=== PATIENT | male | born 1965 | race Caucasian/White ===

== ENCOUNTER 2020-06-02 15:12 | Outpatient (CLI) | payer OTHER, SELFPAY | END 2020-06-02 15:13 | disposition home or self-care (01) | LOC: ANHCOVIDVC 15:12 | PROVIDERS: PCP Family Medicine | DX: Z23 Encounter for immunization (principal) | CPT/HCPCS: 0001A; 91300 ==

== ENCOUNTER 2020-06-23 15:13 | Outpatient (CLI) | payer OTHER, SELFPAY | END 2020-06-23 15:14 | disposition home or self-care (01) | LOC: ANHCOVIDVC 15:14 | PROVIDERS: PCP Family Medicine | DX: Z23 Encounter for immunization (principal) | CPT/HCPCS: 0002A; 91300 ==

== ENCOUNTER 2020-07-21 08:20 | Outpatient (CLI) | payer OTHER, SELFPAY ==
--- NOTE | 2020-08-04 16:41 | WPDHOMESLEEP ---
Sleep Study - Home Unattended Date of Study: 07/21/20 Ordering Provider: Rick uMnoz MD Interpreting Provider: Jerrica Damon MD Home Sleep Study Type: Apnea Link Air Height: 1.83 m Weight: 108.862 kg Body Mass Index: 32.5 Neck Circumference (inches): 17 Regan: 3 Reason for Sleep Study Sleeping longer than in the past, nocturia+ Sleep History Bryon Reyes is a 55 year old man with prostate issues, and he wakes to urinate 2-3 times per night. This does not bother him, however he has been urged by others to get his sleep tested. He does not have difficulty falling asleep or waking in the morning. HE denies most all complaints about his sleep. He does not wake at night with shortness of breath, waking with heartburn, belching or coughing, dose not snores and others sharif not complain that he snores. He has no problem sleeping with a cold. He denies gasping for breath at night. He does not sweat excessively at night, and does not notice his heart pounding excessive;y at night. He does not fall asleep in the day, does not fall asleep involuntarily, and does not fall asleep while driving. He does not have loss of muscle tome with strong emotion. He does not have daytime difficulties due to excessive sleepiness. He does not feel paralyzed on waking or falling asleep. He denies having dream-like scenes upon waking or falling asleep. He rarely has nightmares. He rarely remembers his dreams. He denies racing thoughts, feelings of sadness or depression, anxiety, or muscular tension. He rarely notices parts of his body jerking. He does not kick at night. He does not have crawling or achey feelings in his legs. He has some hip pain at night. He does not have morning jaw pain, and he does not grind his teeth during his sleep. Fannie frequently is bothered by pain in kathy day. He rarely is awakened by pain at night. He frequently feels stiff in the morning with sore achy muscles. He rarely wakes with pain in this neck and spine. Normal bedtime is 8:30 pm, falling asleep quickly, waking 2-3 times at night to urinate, and then he returns to sleep. He wakes at 3:00-4:00 a.m.. On weekends, he goes to bed at 9:00-10:00 p.m., and wakes at 5:00 a.m. He rarely takes a nap. A short nap may be refreshing. He feels good when he wakes in the morning. Habits: Former smoker. Caffeine: 8-16 oz a day. No alcohol. No recreational drugs. [facility] Past Medical History Medical History (Updated 08/06/20 @ 16:51 by Jerrica Damon MD) Arthritis Cerebellar ataxia Urinary hesitancy Surgical History Surgical History History of hip replacement (~2012) History of mastoidectomy (~1975) right Family History Family History Sibling Depression Family history of bipolar disorder Patient's sister is in good health Patient's brother is in good health Grandparent Family history of bipolar disorder Family history of cardiovascular disease Father Family history of alcoholism Hypertension Mother Family history of alcoholism Patient's mother is Other Diabetes mellitus Family history of lung cancer Social History Social History Smoking status: Former smoker Smoking end date: 03/31/16 Alcohol intake: never Medications Home Medications Medication Instructions Recorded Confirmed Type tamsulosin 0.4 mg capsule 0.4 mg PO DAILY #30 cap 08/16/19 07/27/20 Rx ibuprofen 800 mg tablet 800 mg PO Q6H PRN #100 tablet 12/02/19 07/27/20 Rx Sleep Procedure This test was performed using 4 channel monitoring including respiratory effort channel, snoring channel, heart rate channel, and oxygen saturation channel. This study was scored using CMS guidelines. Sleep Architecture Not applicable for home sleep test. Respiratory Analysis The recording time is 6 ho
[2020-08-06 16:44] VITALS: BMI 32.5
== END 2020-07-21 08:21 | disposition home or self-care (01) ==
LOC: ANHCSM 08:20
PROVIDERS: PCP Family Medicine; Visit Provider Family Medicine
DX: G47.33 Obstructive sleep apnea (adult) (pediatric) (principal); Z68.35 Body mass index [BMI] 35.0-35.9, adult
CPT/HCPCS: 95806

== ENCOUNTER 2020-09-26 11:42 | Outpatient (CLI) | payer OTHER, SELFPAY ==
--- NOTE | 2020-09-26 12:57 | ECG_ITS ---
Measurements Intervals [place] Rate: 54 P: 11 ND: 160 QRS: 47 QRSD: 101 T: 25 QT: 413 QTc: 394 Interpretive Statements SINUS BRADYCARDIA INCOMPLETE RIGHT BUNDLE BRANCH BLOCK BASELINE ARTIFACT- I, V2 BORDERLINE ECG Electronically Signed On 09-26-2020 13:15:20 CDT by Abdulaziz Dotson D.O.
[2020-09-26 13:47] LABS: Basophils Absolute Auto 0.1 K/mm3 (0.0-0.1); Basophils Percent Auto 0.7 % (0.2-1.2); Eosinophils Absolute Auto 0.4 K/mm3 (0-0.3); Eosinophils Percent Auto 5.1 % (0-4.4); Hematocrit 51.2 % (42.0-52.0); Hemoglobin 17.3 g/dL (14.0-18.0); Immature Granulocyte Absolute 0.01 K/mm3 (0.00-0.031); Immature Granulocyte Percent A 0.1 % (0-0.5); Lymphocytes Percent Auto 33.8 % (18.3-44.2); Mean Corpuscular HGB Conc 33.8 g/dl (32-36); Mean Corpuscular Hemoglobin 32.5 pg (26-34); Mean Corpuscular Volume 96.1 fl (80-100); Mean Platelet Volume 9.6 fl (7.4-10.4); Monocytes Absolute Auto 0.7 K/mm3 (0.1-0.6); Monocytes Percent Auto 9.6 % (2.6-8.5); Neutrophils Absolute Auto 3.6 K/mm3 (1.3-6.7); Neutrophils Percent Auto 50.7 % (45.5-73.1); Platelet Count Result 208 k/mm3 (150-375); Red Blood Count 5.33 M/mm3 (4.6-6.20); Red Cell Distribution Width 12.5 % (11.5-14.5); White Blood Count 7.1 K/mm3 (4.5-10.0)
[2020-09-26 13:50] LABS: Add Urine Microscopic? YES; Appearance Urine Clear (Clear); Bilirubin Urine Negative (Negative); Blood Urine 1+ (Negative); Color Urine Yellow (Yellow); Glucose Urine UA Negative (Negative); Ketones Urine Negative (Negative); Leukocyte Esterase Ur Negative LEU/UL (Negative); Nitrate Urine Negative (Negative); Protein Urine Negative (Negative); RBC Urine 0-2 /hpf (0-2); Specific Grav Ur 1.018 (1.001-1.035); Urobilinogen Urine Negative mg/dL (<2.0); WBC Urine 0-3 /hpf
[2020-09-26 13:59] LABS: Prothrombin Time 13.4 Seconds (11.1-14.7)
[2020-09-26 14:00] LABS: Partial Thromboplastin Time 26.4 SECONDS (22.3-36.8)
[2020-09-26 14:01] LABS: Albumin Level 4.4 g/dL (3.5-5.1); Anion Gap 6 mmol/L (8-16); Blood Urea Nitrogen 14 mg/dL (9-20); Calcium 9.4 mg/dL (8.4-10.2); Carbon Dioxide 27 mmol/L (22-30); Chloride 107 mmol/L (98-107); Estimated Glomerular Filt Rate > 60; Glucose 93 mg/dL (75-110); Potassium 4.4 mmol/L (3.4-5.0); Sodium 140 mmol/L (137-145)
[2020-09-26 14:04] LABS: Hemoglobin A1C 5.3 % (<5.7)
[2020-09-26 14:06] LABS: Urine Cotinine POSITIVE
== END 2020-09-26 11:43 | disposition home or self-care (01) ==
LOC: ANHSURGERY 11:48
PROVIDERS: PCP Family Medicine; Visit Provider Orthopaedic Surgery
DX: M16.11 Unilateral primary osteoarthritis, right hip (principal); Z01.818 Encounter for other preprocedural examination; I45.10 Unspecified right bundle-branch block
CPT/HCPCS: 80048; 80307; 81001; 82040; 83036; 85025; 85610; 85730; 87081; 93005

== ENCOUNTER 2020-11-14 09:10 | Outpatient (CLI) | payer OTHER, SELFPAY ==
[2020-11-14 09:48] LABS: Urine Cotinine NEGATIVE
== END 2020-11-14 09:11 | disposition home or self-care (01) ==
PROVIDERS: PCP Family Medicine; Visit Provider Orthopaedic Surgery
DX: M16.11 Unilateral primary osteoarthritis, right hip (principal); Z01.818 Encounter for other preprocedural examination
CPT/HCPCS: 80307; 86850; 86900; 86901

== ENCOUNTER 2020-11-22 00:17 | Day surgery (SDC) | payer OTHER, SELFPAY ==
[2020-09-26 12:09] VITALS: BMI 33.3
[2020-11-09 16:00] VITALS: BMI 33.3
--- NOTE | 2020-11-21 14:33 | WPDANESEPPF ---
Anes - Initial Pre Proc Eval Procedure: Operation Date: 11/22/20 07:30 Proposed Procedures p Right Total Hip Arthroplasty - Mayco Carter MD Date/Time: 11/21/20 14:33 Surgeon: Mayco Carter MD Pre Op Diagnosis: Right Hip DJD Patient Data Age: 55 Gender: M Height: 1.83 m Weight: 111.4 kg Allergies Allergy/AdvReac Type Severity Reaction Status Date / Time No Known Allergies Allergy Verified 11/22/20 06:11 Home Medications Medication Instructions Recorded Confirmed Type ibuprofen 800 mg tablet 800 mg PO Q6H PRN #100 tablet 12/02/19 11/22/20 Rx tamsulosin 0.4 mg PO DAILY 09/26/20 11/22/20 History tramadol 50 mg tablet 50 mg PO Q12H PRN tablet 10/04/20 11/22/20 History cyclobenzaprine 10 mg tablet 10 mg PO TID PRN #60 tablet 11/03/20 11/22/20 Rx diazepam 5 mg PO BID PRN 11/09/20 11/22/20 History Patient hx anesthesia problems: none Family hx anesthesia problems: none PMFSH Past Medical History Medical History Arthritis Cerebellar ataxia Urinary hesitancy Surgical History Surgical History History of hip replacement (~2012) History of mastoidectomy (~1975) right Family History Family History Sibling Depression Family history of bipolar disorder Patient's sister is in good health Patient's brother is in good health Grandparent Family history of bipolar disorder Family history of cardiovascular disease Father Family history of alcoholism Hypertension Mother Family history of alcoholism Patient's mother is Other Diabetes mellitus Family history of lung cancer Social History Social History (Updated 11/06/20 @ 13:25 by Viv Sanchez MA) Smoking packs per day: 1 Smoking cigarettes per day: 20.0 Years smoked: 35 Smoking pack-years: 35.00 Smoking end date: 03/31/16 Additional smoking assessment comments: STOPPED CIGARETTES 2011, CURRENTLY VAPES 10 TIMES/DAY(WITH NICOTINE) Alcohol intake: former Alcohol use details: DRANK HEAVILY PRIOR TO 2011 Living arrangements: with family Additional living arrangements comments: Spiritual care concerns: No Anes - Eval Final PreProcedure Day of Procedure 11/21/20 14:33 Patient weight: obese Heart: regular rate and rhythm Lungs: clear to auscultation Airway: Mallampati scale class III Neurological: alert and oriented Last oral intake: >/= 8 hours ASA classification: III Emergent: no Anesthetic plan: proceed Anesthesia type and monitoring: general ETT and standard monitoring Informed Consent: The patient's anesthetic plan and its attendant risks and benefits were discussed with the patient/family/POA. Questions were solicited and answers provided to the satisfaction of the patient/family/POA.
[2020-11-22] VITALS (11 sets, daily range): BP systolic 123–155; BP diastolic 71–84; PULSE 64–78; RESP 10–20; TEMP 36.1–36.3; O2SAT 91–98; BMI 33.8
--- NOTE | ~2020-11-22 | XR_ITS ---
EXAMINATION: XR hip RT 1V DATE: 11/22/2020 11:14 INDICATION: Right hip arthroplasty. Postop. TECHNIQUE: A single view of right hip was obtained. COMPARISON: Right hip radiographs 07/27/2020 FINDINGS: There is a total right hip arthroplasty in near-anatomic alignment. No fracture. There is g as in the soft tissues, consistent with recent surgery. IMPRESSION: 1. Total right hip arthroplasty in near-anatomic alignment. Reviewed, dictated and finalized at location A.
[2020-11-22] MEDS: ACETAMINOPHEN 500 MG TABLET 1000 MG PO (06:17)
[2020-11-22] MEDS: LACTATED RINGERS 1,000 ML 30 ML IV CONT ×3 (06:29→12:06)
[2020-11-22] MEDS: TRANEXAMIC ACID 1,000MG/ISO100 1,000 MG/100 ML BAG 200 MG IVPB (06:30)
--- NOTE | 2020-11-22 07:19 | WPDHPUPDATE1 ---
History and Physical Update Update Date/Time: 11/22/20 07:19 History and Physical has been reviewed, including an updated exam of the patient. There are NO changes in the patient's condition. Risks, benefits, and alternatives have been discussed and questions answered. Patient agrees to proceed with procedure.
[2020-11-22] MEDS: ceFAZolin 2 GM/D5W 50 ML 2 GM/50 ML BAG IVPB (07:29)
--- NOTE | 2020-11-22 07:40 | SUR.PREOP ---
0715; DR GRUBBS NOTIFIED OF VERY SMALL SCRATCH TO BACK OF LOWER RT CALF.
[2020-11-22] MEDS: BUPIVACAINE HCL 0.5% PF 30 ML VIAL 10 ML INFILTRATE (09:53)
[2020-11-22] MEDS: KETOROLAC 30 MG/ML VIAL (*BKC) IV PUSH (10:29)
--- NOTE | 2020-11-22 11:00 | P.OP_ITS ---
Procedure Note - Detailed Date of Procedure 11/22/20 Pre-op Diagnosis Right Hip DJD Post-op Diagnosis same Procedure Performed R JC Surgeon Mayco Carter MD Anesthesia general Description of Procedure THE PATIENT WAS TAKEN TO THE OPERATING ROOM IN STABLE CONDITION AND WAS PLACED IN THE LATERAL DECUBITUS AND THE RIGHT LOWER EXTREMITY WAS PREPPED AND DRAPED IN THE STERILE FASHION. INCISION WAS MADE IN THE POSTERIOR LATERAL SIDE OF THE HIP, DOWN TO THE FASCIA LAYER. THE FASCIA WAS INCISED. THE HIP WAS EXPOSED. THE SHORT EXTERNAL ROTATORS WERE EXPOSED. THE SCIATIC NERVE WAS IDENTIFIED. INCISION WAS MADE THROUGH THE SORT EXTERNAL ROTATORS AND THE CAPSULE OF THE HIP JOINT. THE HIP WAS DISLOCATED. AN OSTEOTOMY WAS MADE TO THE FEMORAL NECK ABOUT 1 CM PROXIMAL TO THE LESSER TROCHANTER. THE ACETABULUM WAS EXPOSED. THERE WAS SEVERE DJD SEEN. BEGINNING WITH A 44 REAMER THE ACETABULUM WAS REAMED TO 53 MM. A 53 MM TRIAL WAS PLACED IN 35 DEG OF ABDUCTION AND ANTEVERSION WAS IN ALIGNMENT WITH THE TRANS ACETABULAR LIGAMENT. THE FIT WAS EXCELLENT. THE TRIAL WAS REMOVED. A 56 MM BIOMET G7 COMPONENT WAS THEN TAPPED IN TO PLACE IN 35 DEG OF ABDUCTION AND ANTEVERSION IN ALIGNMENT WITH THE TRANSVERSE ACETABULAR LIGAMENT. THE FIT WAS EXCELLENT. THE ACETABULAR LINER WAS PLACED AND CHECKED FOR STABILITY. NEXT THE FEMUR WAS PREPARED WITH INITIAL CANAL FINDER THEN SEQUENTIAL BROACHING WITH A TAPERLOC HIP SYSTEM, UNTIL A 13 BROACH FIT WELL IN 15 OF ANTEVERSION. A +6 HIGH OFFSET NECK WITH 36 MM HEAD TRIAL WAS PLACED. THE ANDRIA TEST WAS EXCELLENT AND THE STABILITY IN FLEXION AND ROTATION WAS EXCELLENT. LEG LENGTHS WERE GROSSLY EQUAL. TRIALS WERE REMOVED. A BIOMET TAPERLOC 13 STEM WAS PLACED WITH A HIGH OFFSET NECK THE FIT WAS EXCELLENT IN 15 DEG OF ANTEVERSION. A +6 CERAMIC 36 MM FEMORAL HEAD WAS PLACED. THE HIP WAS TRIALED AND THE STABILITY WAS EXCELLENT WERE THE LEG LENGTHS AND THE SCHUK TEST. THE WOUND WAS IRRIGATED WITH STERILE BETADINE AND WATER FOR 3 MIN. THEN WASHED AGAIN. THE CAPSULE AND THE EXTERNAL ROTATORS WERE APPROXIMATED WITH NUMBER 1 VICRYL. THE FASCIA WITH No 2 QUIL AND THE SUB CUTANEOUS LAYER WITH 2-0 ABSORBABLE SUTURE WITH A RUNNING 3-0 SUBCUTICULAR LAYER WELL. DERMABOND WAS PLACED AND STERILE DRESSING WAS APPLIED. PATIENT WAS PLACED BACK ON TO THE S UPINE POSITION AND WAS EXTUBATED Estimated Blood Loss 1,000 Complications No immediate complications Condition stable Disposition PACU
[2020-11-22] MEDS: HYDROmorphone HCL INJ (*CRX) 1 MG/ML SYR 0.25 MG IV PUSH ×4 (11:18→12:00)
[2020-11-22] MEDS: oxyCODONE HCL (*CRX) 5 MG TAB IR PO (13:21)
--- NOTE | 2020-11-22 13:31 | SUR.PHASEII ---
Patient is working with physical therapy at this time.
--- NOTE | 2020-11-22 18:34 | SUR.PHASEII ---
Lapse in vitals in Outpatient d/t patient working with therapy, eating, and waiting for discharge paperwork. Patient's vitals were stable in outpatient when hooked up to the monitor.
== END 2020-11-22 16:14 | disposition home or self-care (01) ==
PROVIDERS: PCP Family Medicine; Visit Provider Orthopaedic Surgery
PROC: (CPT 27130; principal; 2020-11-22 07:30)
DX: M16.11 Unilateral primary osteoarthritis, right hip (principal); F17.210 Nicotine dependence, cigarettes, uncomplicated; Z79.899 Other long term (current) drug therapy
CPT/HCPCS: 27130; 73501; 80307; 86850; 86900; 86901; 97110; 97162; A9270; C1713; C1776; J0171; J0690; J1100; J1170; J1885; J2250; J2270; J2405; J2704; J2710; J2795; J3010; J7120

== ENCOUNTER 2021-01-11 08:15 | Outpatient (RCR) | payer OTHER, SELFPAY ==
--- NOTE | 2020-12-21 09:57 | PTOPEVAL ---
PHYSICAL THERAPY EVALUATION AND PLAN OF CARE Thank you for referring Bryon Reyes to [facility].? The patient is scheduled to be seen for therapy? 1x/week for 4 weeks. Please review, sign, date and return this plan of care CADE. I agree with and certify that the following plan of care is medically necessary. Referring Physician Date Attending Provider: Mayco Carter MD Evaluation Outpatient Past Medical History Past Medical History No Past Medical/Surgical History Patient/Family Denies Significant Past Medical/ Surgical History Source of Past Medical History Patient Evaluation Information Problem Diagnosis R JC Onset 11/22/2020 Additional Evaluation Detail Pt discontinued use of cane following therapy due to excellent progress. 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 He Query Text:As Reported By Patient/ drives approximately 300 miles Family per day and must lift up to 50 pounds. He is not currently working per MD. Prior Level of Function Activity Level (Last 3 Months) Hand Dominance Right Activity of Daily Living Ability Independent Indoor/Home Mobility Independent Community Mobility Independent Stairs Ability Independent Functional Cognition (Planning, Shopping Independent , Taking Medications) Cooking Yes Cleaning Yes Laundry Yes Shopping Yes Home Setting Home Type House,Multiple Levels Environmental Barriers Railing, Ascend Left,Stairs, Greater than 4 Living Situation With Spouse Support Available Local Family Support Mobility Assistive Devices (Used Last 3 Cane Months) Bathing Equipment None Pain Assessment Timing of Pain Assessment Timing of Pain Assessment Assessment Self Report Self Report Pain Level 0 Pain Score Pain Score 0: Self Report Lower Extremity Muscle Strength Testing General Lower Extremity Strength Gross Lower Extremity Strength -5XSTS=14.78s Hip Strength Right Hip Flexion Strength 4- Good - Hip Abduction Strength 4- Good - Hip Adduction Strength 5 Normal Hip Medial Rotation Strength 5 Normal Hip Lateral Rotation Strength 3+ Fair + Left Hip Flexion Strength 5 Normal Hip Extension Strength 4 Good Hip Abduction Strength 4 Good Hip Adduction Strength 5 Normal Hip Medial Rotation Strength 5 Normal Hip Lateral Rotation Strength
--- NOTE | 2020-12-21 09:58 | PCPTNOTE ---
On 12/21/20, the student, ESTELLA Adame, provided care and completed [facility] documentation on this patient. I have reviewed the student's documentation and agree with the findings.
--- NOTE | 2021-01-17 17:52 | PCPTNOTE ---
Patient called & cancelled scheduled appointment tomorrow due to exposure to covid.
--- NOTE | 2021-01-31 17:09 | PCPTNOTE ---
Patient called & cancelled scheduled appointment this date due to going to a .
--- NOTE | 2021-02-08 10:36 | PCPTNOTE ---
PHYSICAL THERAPY DISCHARGE NOTE Attending Provider: Mayco Carter MD Patient:Bryon Reyes Date of :1965 Patient has not returned for any further treatments since 01/11/2021, therefore will be discharged at this time. Patient?s initial visit was on 12/21/2020. He returned back to work. Thank you for referring this patient to [facility]. Please review, sign, date and return this discharge summary CADE. I have been updated about the patient's current status and I agree with discharge from the above service at this time. Referring Physician Date
== END 2021-02-08 16:44 | disposition home or self-care (01) ==
LOC: ANHPT 08:15
PROVIDERS: PCP Family Medicine; Visit Provider Orthopaedic Surgery
DX: Z47.1 Aftercare following joint replacement surgery (principal); Z96.641 Presence of right artificial hip joint
CPT/HCPCS: 97110; 97161

== ENCOUNTER 2023-10-19 08:05 | Emergency (ER) | payer OTHER, SELFPAY ==
[2023-10-19 08:41] VITALS: BP 124/62; PULSE 73; RESP 16; TEMP 36.6; O2SAT 98
--- NOTE | 2023-10-19 09:08 | ED.URI ---
HPI - URI/Sore Throat General Chief Complaint: Upper Respiratory Infection Stated Complaint: sore throat,nostrils clogged up Time Seen by Provider: 10/19/23 09:00 Source: patient, RN notes reviewed and old records reviewed Mode of arrival: ambulatory Limitations: no limitations History of Present Illness HPI Narrative: patient presents with complaints of 3 day history of sore throat, cough, nasal congestion. He is unsure if he has been running a fever. States that his worst symptom is cough. He denies any shortness of breath. Denies any chest pain. He voices no other concerns or complaints at this time. He has not been taking anything for his symptoms. Related Data Allergies Allergy/AdvReac Type Severity Reaction Status Date / Time No Known Allergies Allergy Verified 10/19/23 08:34 Review of Systems Review of Systems: All systems reviewed & are unremarkable except as noted in HPI and below Constitutional: Constitutional: Reports no additional constitutional complaints ENT: Reports system reviewed and no additional complaints, except as documented, Reports nasal congestion, Reports nasal discharge and Reports post nasal drip Cardiovascular: Cardiovascular: Reports no additional cardiovascular complaints Respiratory: Respiratory: Reports no additional respiratory complaints, Reports chest congestion and Reports cough Gastrointestinal: Gastrointestinal: Reports no additional gastrointestinal complaints PMFSH Past Medical History Medical History Arthritis Cerebellar ataxia Mixed hyperlipidemia Urinary hesitancy Surgical History Surgical History History of hip replacement (~2012) LEFT JC History of mastoidectomy (~1975) right History of total right hip arthroplasty 2020 Family History Family History Sibling Depression Family history of bipolar disorder Patient's sister is in good health Patient's brother is in good health Grandparent Family history of bipolar disorder Family history of cardiovascular disease Father Family history of alcoholism Hypertension Mother Family history of alcoholism Patient's mother is Other Diabetes mellitus Family history of lung cancer Social History Social History Smoking packs per day: 1 Smoking cigarettes per day: 20.0 Years smoked: 35 Smoking pack-years: 35.00 Smoking status: Former smoker Tobacco type: cigars Smoking end date: 03/31/16 Alcohol intake: former Alcohol use details: DRANK HEAVILY PRIOR TO 2011 Substance use: never Lack of Transportation: No Lack of Food: Never True Current Housing: I Have Housing Concerned About Future Housing: No Difficulty Paying Gas/Electric Bills: No Difficulty Paying for Meds: No Currently Unemployed: No Education: High School Diploma/GED Difficulty w/ Childcare or Family Care: No Living arrangements: with family Additional living arrangements comments: Occupation/Education: occupation Gender identity (if verbalized by the patient): Male Spiritual care concerns: No Comments At the time of my signature, I reviewed and agree with the nursing past medical, surgical, social, and family history. There is no relevant family history pertinent to the patient complaint. Exam Const: General: cooperative, no acute distress, alert and awake Orientation/consciousness: oriented to person, oriented to place and oriented to time HENMT: Head: normal to inspection Ears: TM's normal bilaterally Throat: posterior oropharynx abnormal erythema and postnasal drainage Resp: Effort & Inspection: normal respiratory effort and able to speak in complete sentences Auscultation: clear to auscultation bilaterally, no crackles, no rales, no rho
[2023-10-19 09:17] LABS: EDSTREPNEGPOS1 Presumptive Negative
== END 2023-10-19 09:30 | disposition home or self-care (01) ==
PROVIDERS: Emergency Provider Nurse Practitioner Family; PCP Family Medicine
DX: J06.9 Acute upper respiratory infection, unspecified (principal); Z20.822 Contact with and (suspected) exposure to COVID-19; Z87.891 Personal history of nicotine dependence; M19.90 Unspecified osteoarthritis, unspecified site; E78.2 Mixed hyperlipidemia; G11.9 Hereditary ataxia, unspecified; Z96.643 Presence of artificial hip joint, bilateral
CPT/HCPCS: 87081; 87426; 87880; 99213; G0463

== ENCOUNTER 2024-05-07 01:31 | Day surgery (SDC) | payer OTHER, SELFPAY ==
[2024-04-21 10:32] VITALS: BMI 35.3
--- OUTSIDE RECORDS SUMMARY | 2024-05-07 01:34 | XMS_ITS | Referral Summary ---
Author Organization [facility] [address] [place] [address] Care Team Providers Care Grab Operator Name Role Phone Rick Munoz MD Primary Care Provider [phone] Allergies No known active allergies Medications No known medications Active Problems Problem Noted Date Diagnosed Date Right ear pain 10/14/2022 Otomycosis of right ear 10/14/2022 Assessment & Plan (08/27/2023 9:20 PM CDT): I do not find any evidence of a fungal infection. It could be that the antifungal may have had an impact on this. I recommended that we try starting him on CSF powder once or twice a week. I think that may help in the long run. He recalls doing that when he was a child. Assessment & Plan (12/06/2022 4:17 PM CDT): I do not see any evidence of infection. He still does have some debris in a small pocket in the posterior superior mastoid. Could be seen with a 45 degree endoscope but not able to reach with instruments. Talked with him about this. I think he probably needs revision canal plasty to make this more accessible. We are going to see how things go however. I recommended a follow-up in about 2 months. He can always call me if he has problems beforehand. He understands. Assessment & Plan (11/23/2022 12:20 PM CDT): I did clean a lot of debris from his mastoid cavity and canal. It was difficult to tell exactly what it was but most likely fungal material. After cleaning I filled his mastoid cavity and canal with nystatin and triamcinolone cream. I recommended keeping his ear dry. I would like to see him in about 2-3 weeks. Assessment & Plan (10/14/2022 6:30 PM CDT): After cleaning his right mastoid cavity I applied a liberal amount of Mycolog cream. I told him to keep the ear dry. I am recommending that he follow-up in about 3 weeks for cleaning. 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 Looks pretty good. I have recommended a follow up in 6 months for cleaning. Assessment & Plan (02/04/2023 8:09 PM PHYSICIAN SUPPORT COORDINATOR): I did examined and cleaned his mastoid cavity again under the microscope. With a 45 degree endoscope he still has a small amount of collected debris in a small pocket posteriorly. Overall looks pretty good. I think eventually he may need to have something done to revise his canal so that this pocket can be more readily cleaned. For now we are going to see how things go. I suggested a follow-up in 6 months. Assessment & Plan (11/23/2022 12:21 PM CDT): His right ear was cleaned under the microscope. He has a large mastoid cavity and a fairly narrow meatus which makes it difficult to get all the way back into the mastoid bowl area. I believe I was able to clean this adequately however. If this continues to be an issue he may need to consider a meatal plasty to facilitate further ear cleaning. I discussed this with him. Will see how things go. Assessment & Plan (10/31/2022 6:41 PM CDT): He still has an infection with a lot of debris that I cleaned under the microscope today. This time it appears to be bacterial. I applied CSF powder to his right ear and mastoid. I recommended that he keep it dry. I also am going to place him on a steroid pack and ciprofloxacin. Concern for possible Pseudomonas considering [place] A culture was also taken today. I will call him if there is any need to change his antibiotic. The plan is for a follow-up in about 4 weeks unless there are problems. He understands. Assessment & Plan (10/14/2022 6:30 PM CDT): He has a mastoid cavity that has not been cleaned in a while. I think he is going to probably benefit from more frequent cleaning and I talked with him about that. Social History Tobacco Use Types Packs/Day Years Used Date Smoking Tobacco: Some Days Cigarettes Cigars Smokeless Tobacco: Never Tobacco Cessation:Ready to Q uit: Not Asked; Counseling Given: Not Answered Personal Safety Answer Date Recorded Getting School Help Needed Not on file 05/30 Sex and Gender Information Value Date Recorded Sex Assigned at Not on file Legal Sex Male 6:06 PM PHYSICIAN SUPPORT COORDINATOR Gender Identity Not on file Sexual Orientation Not on file Last Filed Vital Signs Vital Sign Reading Time Taken Comments Blood Pressure - - Pulse - - Temperature - - Respiratory Rate 18 08/27/2023 1:40 PM CDT Oxygen Saturation - - Inhaled Oxygen Concentration - - Weight 113.4 kg (250 lb) 08/27/2023 1:40 PM CDT Height 182.9 cm (6') 08/27/2023 1:40 PM CDT Body Mass Index 33.91 08/27/2023 1:40 PM CDT Plan of Treatment Not on file Insurance MIKE OPEN ACCESS MIKE OPEN ACCESS Care Teams Grab Operator Relationship Specialty Start Date End Date Rick Munoz MD PCP - General Family Medicine 10/09/22
--- OUTSIDE RECORDS SUMMARY | 2024-05-07 01:34 | XMS_ITS | Clinical Summary ---
Author Organization [facility] [address] [place] [address] Care Team Providers Care Curriculum And Assessment Director Name Role Phone Rick Munoz MD Primary Care Provider [phone] Allergies No known active allergies Medications No [...] cleaning. 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 Surgical History Surgery Date Site/Laterality Comments TONSILLECTOMY/ADENOIDECTOMY Bilateral 1959's MYRINGOTOMY W/ TUBES Bilateral 1969' MASTOIDECTOMY 1969' TOTAL HIP ARTHROPLASTY 03/31/2012 - 03/30/2013 TOTAL HIP ARTHROPLASTY 03/31/2020 - 03/30/2021 Medical History Medical History Date Comments Ear problems Family History Medical History Relation Name Comments No Known Problems Father No Known Problems Mother Relation Name Status Comments Father Mother Social History Tobacco Use Types Packs/Day Years Used Date Smoking Tobacco: Some Days Cigarettes Cigars Smokeless Tobacco: Never Tobacco Cessation:Ready to Q uit: Not Asked; Counseling Given: Not Answered Personal Safety Answer Date Recorded Getting School Help Needed Not on file 05/30 Sex and Gender Information Value Date Recorded Sex Assigned at Not on file 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 Gender Identity Not on file Sexual Orientation Not on file Obstetrics History Last Filed Vital Signs Vital Sign Reading [...] 08/27/2023 1:40 PM CDT Plan of Treatment Health Maintenance Due Date Last Done Comments Colon Cancer Screening-Colonoscopy 1965 Depression Screening 1965 Hepatitis C Screening 1965 Prostate Cancer Screening-PSA 1965 Pneumococcal vaccine <65 (1 of 2 - PCV) 1971 DTaP/Tdap/Td Vaccine (1 - Tdap) 01/20/1976 Hepatitis B Screening 1983 Regular Well Visit/Exam 18-64 1983 Zoster Vaccine (1 of 2) 2015 Covid-19 Vaccine (3 - season) 2023, 06/02/2020 Influenza Vaccine (#1) 2023 03/05/2018 Insurance [employer] OPEN ACCESS [employer] OPEN ACCESS Care Teams Curriculum And Assessment Director Relationship Specialty Start Date End Date Rick Munoz MD PCP - General Family Medicine 10/09/22
[2024-05-07 06:46] VITALS: BP 123/83; PULSE 90; RESP 16; TEMP 36.2; O2SAT 97
[2024-05-07] MEDS: LACTATED RINGERS 1,000 ML 150 ML IV CONT (07:01)
--- NOTE | 2024-05-07 07:45 | P.PNAN_ITS ---
Anes - Initial Pre Proc Eval Procedure: Operation Date: 05/07/24 08:00 Proposed Procedures p Colonoscopy - Brendan Shetty MD Date/Time: 05/07/24 07:45 Surgeon: Brendan Shetty MD Pre Op Diagnosis: hx of colon polyps Patient Data Age: 59 Gender: M Height: 1.83 m Weight: 116.9 kg Last Vital Signs Temp 36.2 C L 05/07/24 06:46 Pulse 90 05/07/24 06:46 Resp 16 05/07/24 06:46 BP 123/83 05/07/24 06:46 Pulse Ox 97 05/07/24 06:46 O2 Del Method Room Air 05/07/24 06:46 Allergies Allergy/AdvReac Type Severity Reaction Status Date / Time No Known Allergies Allergy Verified 05/07/24 06:44 Home Medications ?Medication ?Instructions ?Recorded ?Confirmed ?Type tamsulosin 0.4 mg capsule 0.4 mg PO DAILY #90 caps 02/27/24 05/07/24 Rx Patient hx anesthesia problems: none Family hx anesthesia problems: none Results Review: All pre-operative results and documents have been reviewed as part of the pre- operative evaluation. [facility] Past Medical History Medical History Mixed hyperlipidemia Arthritis Urinary hesitancy Cerebellar ataxia Surgical History Surgical History History of total right hip arthroplasty 2020 History of mastoidectomy (~1975) right History of hip replacement (~2012) LEFT JC Family History Family History Sibling Depression Family history of bipolar disorder Patient's sister is in good health Patient's brother is in good health Grandparent Family history of bipolar disorder Family history of cardiovascular disease Father Family history of alcoholism Hypertension Mother Family history of alcoholism Patient's mother is Other Diabetes mellitus Family history of lung cancer Social History Social History Smoking packs per day: 1 Smoking cigarettes per day: 20.0 Years smoked: 35 Smoking pack-years: 35.00 Smoking status: Current some day smoker Tobacco type: cigars Smoking end date: 03/31/16 Alcohol intake: current Alcohol use details: once or twice a month Substance use: never Lack of Transportation: No Lack of Food: Never True Current Housing: I Have Housing Concerned About Future Housing: No Difficulty Paying Gas/Electric Bills: No Difficulty Paying for Meds: No Currently Unemployed: No Education: High School Diploma/GED Difficulty w/ Childcare or Family Care: No Living arrangements: with family Additional living arrangements comments: Occupation/Education: occupation Gender identity (if verbalized by the patient): Male Spiritual care concerns: No Anes - Eval Final PreProcedure Day of Procedure 05/07/24 07:45 Patient weight: obese Heart: regular rate and rhythm Lungs: decreased breath sounds Airway: Mallampati scale class II Neurological: alert and oriented Last oral intake: >/= 8 hours ASA classification: III Emergent: no Anesthetic plan: proceed Anesthesia type and monitoring: general GIVS and standard monitoring Results Review: All pre-operative results and documents have been reviewed as part of the pre- operative evaluation. Informed Consent: The patient's anesthetic plan and its attendant risks and benefits were discussed with the patient/family/POA. Questions were solicited and answers provided to the satisfaction of the patient/family/POA.
--- NOTE | 2024-05-07 07:49 | PM.HPGS ---
History of Present Illness History of Present Illness Consent: Risks, benefits, and alternatives have been discussed and questions answered. Patient agrees to proceed with procedure. Chief complaint: hx of colon polyps Narrative: Bryon Reyes Jr. is a 59 year old male with colon polyp in 2019 Review of Systems Review of Systems: All systems reviewed & are unremarkable except as noted in HPI and below PMFSH Past Medical History Medical History (Updated 05/07/24 @ 07:50 by Brendan Shetty MD) Colon polyp Mixed hyperlipidemia Arthritis Urinary hesitancy Cerebellar ataxia Surgical History Surgical History History of total right hip arthroplasty 2020 History of mastoidectomy (~1975) right History of hip replacement (~2012) LEFT JC Family History Family History Sibling Depression Family history of bipolar disorder Patient's sister is in good health Patient's brother is in good health Grandparent Family history of bipolar disorder Family history of cardiovascular disease Father Family history of alcoholism Hypertension Mother Family history of alcoholism Patient's mother is Other Diabetes mellitus Family history of lung cancer Social History Social History Smoking packs per day: 1 Smoking cigarettes per day: 20.0 Years smoked: 35 Smoking pack-years: 35.00 Smoking status: Current some day smoker Tobacco type: cigars Smoking end date: 03/31/16 Alcohol intake: current Alcohol use details: once or twice a month Substance use: never Lack of Transportation: No Lack of Food: Never True Current Housing: I Have Housing Concerned About Future Housing: No Difficulty Paying Gas/Electric Bills: No Difficulty Paying for Meds: No Currently Unemployed: No Education: High School Diploma/GED Difficulty w/ Childcare or Family Care: No Living arrangements: with family Additional living arrangements comments: Occupation/Education: occupation Gender identity (if verbalized by the patient): Male Spiritual care concerns: No Meds Home Medications and Allergies Home Medications ?Medication ?Instructions ?Recorded ?Confirmed ?Type tamsulosin 0.4 mg capsule 0.4 mg PO DAILY #90 caps 02/27/24 05/07/24 Rx Allergies Allergy/AdvReac Type Severity Reaction Status Date / Time No Known Allergies Allergy Verified 05/07/24 06:44 Vital Signs Vital Signs - 24 hr 05/07/24 06:46 Temperature 97.1 F L Pulse Rate 90 Respiratory Rate 16 Blood Pressure 123/83 Pulse Oximetry 97 Oxygen Delivery Room Air Exam Const: General: comfortable and no acute distress HENMT: Face/Nose/Sinus: Normal nares present Eyes: General: appearance normal, both eyes and all related structures Neck: Neck: no JVD Resp: Auscultation: clear to auscultation bilaterally Cardio: Rate: regular rate Rhythm: regular rhythm GI: Inspection: non-distended GI Palp: Yes Soft to palpation Skin: General skin exam: normal color Neuro: General: gait normal Speech: normal speech Extrem: General: normal to inspection Psych: Mental Status: mental status grossly normal Assessment and Plan Assessment and plan (1) Colon polyp: Code(s): K63.5 - Polyp of colon Status: Acute Assessment and Plan: colonoscopy
[2024-05-07 08:14] VITALS: BP 121/85; PULSE 75; RESP 21; O2SAT 95
[2024-05-07 08:24] VITALS: BP 120/81; PULSE 67; RESP 18; O2SAT 96
[2024-05-07 08:34] VITALS: BP 122/64; PULSE 65; RESP 18; O2SAT 98
== END 2024-05-07 08:45 | disposition home or self-care (01) ==
PROVIDERS: PCP Family Medicine; Visit Provider Internal Medicine Gastroenterology
PROC: 0DJD8ZZ Inspection of Lower Intestinal Tract, Via Natural or Artificial Opening Endoscopic (ICD-10-PCS; CPT 45378; principal; 2024-05-07 08:00)
DX: Z12.11 Encounter for screening for malignant neoplasm of colon (principal); D12.3 Benign neoplasm of transverse colon; K64.8 Other hemorrhoids; K57.30 Diverticulosis of large intestine without perforation or abscess without bleeding; E78.2 Mixed hyperlipidemia; R39.11 Hesitancy of micturition; M19.90 Unspecified osteoarthritis, unspecified site; G11.9 Hereditary ataxia, unspecified; F17.290 Nicotine dependence, other tobacco product, uncomplicated; E66.9 Obesity, unspecified; Z68.35 Body mass index [BMI] 35.0-35.9, adult; Z98.890 Other specified postprocedural states; Z80.1 Family history of malignant neoplasm of trachea, bronchus and lung; Z82.49 Family history of ischemic heart disease and other diseases of the circulatory system
CPT/HCPCS: 45385; 88305; J2003; J2704; J7120

== ENCOUNTER 2024-09-01 14:59 | Outpatient (CLI) | payer OTHER, SELFPAY ==
--- NOTE | ~2024-09-01 | XR_ITS ---
3 VIEWS LUMBAR SPINE Ordering provider: Rick Munoz MD History: . M54.17 - Radiculopathy, lumbosacral region . Comparison: None. FINDINGS: VERTEBRAL BODIES: No visible fracture or subluxation. Degenerative changes of the spine. Osteopenia o f the bone. Dextroscoliosis. DISK SPACES: Narrowing of the disc T12-L1, L1-L2, L2-L3 and L3-L4. Multilevel facet joint disease. SOFT TISSUES: Atherosclerotic changes of the aorta. Bilateral hip arthroplasty. IMPRESSION: No acute osseous abnormality lumbar spine. Multilevel degenerative disc disease. Reviewed, dictated and finalized at location [facility].
== END 2024-09-01 15:00 | disposition home or self-care (01) ==
LOC: MICIMG 15:02
PROVIDERS: PCP Family Medicine; Visit Provider Family Medicine
DX: M51.360 Other intervertebral disc degeneration, lumbar region with discogenic back pain only (principal); M51.35 Other intervertebral disc degeneration, thoracolumbar region
CPT/HCPCS: 72110

== ENCOUNTER 2024-09-09 14:29 | Outpatient (CLI) | payer OTHER, SELFPAY ==
--- NOTE | ~2024-09-09 | MR_ITS ---
MRI of the lumbar spine Clinical History: Radiculopathy Technique: Axial T2-weighted images, and sagittal T1-weighted, T2-weighted, and and T2 fat-sat images were acquired. Findings: No acute fracture seen. There is 2 mm retrolisthesis of L2 over L3, and of L3 over L4. No s uspicious bone marrow signal abnormality seen. At L1-L2, there is moderate to advanced degenerative disc narrowing. There is minimal disc bulge and moderate facet arthropathy. No central canal stenosis. There is mild left neural foraminal narrowing. Right neural foramen preserved. At L2-L3, there is severe degenerative disc narrowing. Disc bulge and moderate facet arthropathy resu lt in moderate central canal stenosis/thecal sac compression. There is severe left neural foraminal n arrowing, and moderate to advanced right neural foraminal narrowing. At L3-L4, there is moderate to advanced degenerative disc narrowing. Disc bulge and facet arthropathy result in severe spinal canal stenosis/thecal sac compression. There is severe bilateral neural fora wil compromise. At L4-L5, there is disc bulge with severe facet arthropathy. There is severe spinal canal stenosis/th ecal sac compression. There is severe right neural foraminal narrowing, and moderate left neural fora wil narrowing. At L5-S1, there is mild disc bulge and severe facet arthropathy. No central canal stenosis. There is severe right neural foraminal narrowing, with preservation left neural foramen. Paravertebral soft tissues are unremarkable. Impression: Advanced degenerative spondylosis, with multilevel spinal canal stenosis and neural foraminal narrowi ng. Please see details above. 2 mm retrolisthesis of L2 over L3, and of L3 over L4. Reviewed, dictated and finalized at [facility]. Impression: Advanced degenerative spondylosis, with multilevel spinal canal stenosis and ne ural foraminal narrowing. Please see details above. 2 mm retrolisthesis of L2 over L3, and of L3 over L4.
== END 2024-09-09 14:30 | disposition home or self-care (01) ==
PROVIDERS: PCP Family Medicine; Visit Provider Family Medicine
DX: M47.27 Other spondylosis with radiculopathy, lumbosacral region (principal)
CPT/HCPCS: 72148

== ENCOUNTER 2024-11-15 14:45 | Outpatient (RCR) | payer OTHER, SELFPAY ==
--- NOTE | 2024-10-04 16:26 | OPREHPOC ---
Outpatient Therapy Plan of Care This is a Multidisciplinary Plan of Care that may contain components documented by all disciplines (PT, OT, and ST.) PT Problem 1 PT Problem #1 Knowledge Deficit PT Goal 1 Goal / Goal Update 1. Patient to demonstrate independence with HEP for improved self-reliance of symptom management. Target Visit 4 PT Problem 2 PT Problem #2 Pain PT Goal 1 Goal / Goal Update 1. Patient to decrease subjective reports of pain to <2/10 for improved ADL and work tolerance. 2. Patient to report an improvement in radiating symptoms by 50% to increase ability to perform ADLs. Target Visit 8 PT Problem 3 PT Problem #3 Impaired Functional Mobility PT Goal 1 Goal / Goal Update 1. Pt will report the ability to sit through a full work shift when driving with no increase in RLE pain. 2. Pt will display decreased neural tension by testing negative in SLR and slump test. Target Visit 8 PT Problem 4 PT Problem #4 Impaired Flexibility
--- NOTE | 2024-10-04 16:27 | PTOPEVAL1 ---
Assessment and note entered by Bert Rizo PT Evaluation Information Assessment Status Evaluation Diagnosis Low back pain with RLE radicuolpthy ICD-10 Condition Codes (PT) Pain in low back M54.50,Radiculopathy, lumbar region M54.16 Onset 2023 Subjective Information Pt states he gets RLE pain that starts in the top of his foot and radiates all the way up his leg and into buttock. Pt states sitting is the primary aggravating factor. 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 Pt notes the pain varies day to day but has recently been taking pain medication to manage symptoms. Reported Pain Level Pain Score 4: Self Report Assessment PT Clinical Summary Patient presents to physical therapy with a primary issue of RLE pain for about the past year. Patient demonstrates hip and core weakness, RLE pain, decreased mobility, abnormal posture, gait deficit, and decreased flexibility that limit their ability to perform activities of daily living and functional movements. Patient shows signs and symptoms consistent with nerve root compression and appears to have an extension preference to centralize pain. Patient will benefit from skilled physical therapy to address the above listed deficits and return to prior level of function. Home exercise program instructed and written handout provided, exercises tolerated well with no adverse effects to note post-session. Patient was educated on importance of adherence to home exercise program. Patient was also educated on anatomy, prognosis, home modalities, and plan of care. Plan of Care Interventions Electrical Stimulation,Gait Training,Hot Pack/Cold Pack,Manual Therapy,Mechanical Traction,Neuro Re- education,Therapeutic Activities,Therapeutic Exercise,Other PT Services Indicated Yes Treatment Frequency and 2x week for 8 visits Duration These treatments will address the objective and functional deficits as defined above. The patient will be advanced safely and appropriately in order for the patient to progress towards his/her prior level of function. Additional exercises will be introduced and as well as a comprehensive home exercise program upon discharge, if needed, ?to ensure carryover of functional gains achieved in the clinic. This treatment plan has been reviewed and agreement upon by the patient.
--- NOTE | 2024-11-15 16:20 | OPREHPOC ---
Outpatient Therapy Plan of Care This is a Multidisciplinary Plan of Care that may contain components documented by all disciplines (PT, OT, and ST.) PT Problem 1 PT Problem #1 Knowledge Deficit PT Goal 1 Goal / Goal Update 1. Patient to demonstrate independence with HEP for improved self-reliance of symptom management. Target Visit 4 Progress Met PT Problem 2 PT Problem #2 Pain PT Goal 1 Goal / Goal Update 1. Patient to decrease subjective reports of pain to <2/10 for improved ADL and work tolerance. 2. Patient to report an improvement in radiating symptoms by 50% to increase ability to perform ADLs. - Pt reports a 30% reduction Target Visit 8 Progress Partially Met PT Problem 3 PT Problem #3 Impaired Functional Mobility PT Goal 1 Goal / Goal Update 1. Pt will report the ability to sit through a full work shift when driving with no increase in RLE pain. 2. Pt will display decreased neural tension by testing negative in SLR and slump test. Target Visit 8 Progress Not Met PT Problem 4 PT Problem #4 Impaired Flexibility
--- NOTE | 2024-11-15 16:20 | PTOPEVAL1 ---
Assessment and note entered by Bert Rizo PT Evaluation Information Assessment Status Progress Diagnosis Low back pain with RLE radicuolpthy ICD-10 Condition Codes (PT) Pain in low back M54.50,Radiculopathy, lumbar region M54.16 Onset 2023 Subjective Information Pt notes he received an injection on november 02, he unsure if it helped at all. Pt notes he has not had severe episodes but still can feel increased discomfort anytime he is sitting down. Pt notes the pain get up to a 5/10 and he can feel it progressing as he sits longer. Pt reports he feels about 30% improved with physical therapy and recently purchased a lumbar support cushion which seems to help some. Reported Pain Level Pain Score 1: Self Report Assessment PT Clinical Summary Patient's back and RLE radicular symptoms has improved overall as evidenced by advancements in symptoms, mobility, strength, and overall functional use of the extremity. However, some limitations are still present. Pt continues to have increased radicular symptoms with sitting positions making it difficult to drive and work at his desk. Pt requires cues and monitoring during exercise to manage radicular symptoms. Patient would benefit from continued skilled physical therapy services to address the above listed impairments and facilitate a return to their prior level of function. Plan of Care Interventions Electrical Stimulation,Gait Training,Hot Pack/Cold Pack,Manual Therapy,Mechanical Traction,Neuro Re- education,Therapeutic Activities,Therapeutic Exercise,Other PT Services Indicated Yes Treatment Frequency and 1-2 week for 6 visits Duration These treatments will address the objective and functional deficits as defined above. The patient will be advanced safely and appropriately in order for the patient to progress towards his/her prior level of function. Additional exercises will be introduced and as well as a comprehensive home exercise program upon discharge, if needed, ?to ensure carryover of functional gains achieved in the clinic. This treatment plan has been reviewed and agreement upon by the patient.
== END 2025-01-02 23:59 | disposition home or self-care (01) ==
LOC: ANHGOSHPT 14:45
PROVIDERS: PCP Family Medicine; Visit Provider Family Medicine
DX: M54.30 Sciatica, unspecified side (principal); M54.17 Radiculopathy, lumbosacral region; M54.50 Low back pain, unspecified
CPT/HCPCS: 97014; 97110; 97112; 97140; 97161; G0283